=== PATIENT | female | born 1955 | race Caucasian/White ===

== ENCOUNTER → 2016-09-28 | Outpatient (CLI) | payer MEDICARE, OTHER ==
[~2016-09-28] MED LIST: ASPIR 8181 MG PO; ATIVAN 0.5MG0.5 MG PO; CELEXA20 MG PO; CERTAVITE-ANTI1 EACH PO; CYANOCOBAL1000 MCG/1 SUB-Q; DALIRESP500 MCG PO; DELTASONE20 MG PO; DEPAKOTE ER500 MG PO; FEOSOL325 MG PO; IPRAT-ALBUT 0.5-3 ML INH; LASIX20 M1 PO; LEVOTHROID (SY88 MCG PO; MELATONIN5 M2 PO; MULTI VITAMIN1 EACH PO; NICODERM/HABITR21 MG TOP; NITROSTAT0.4 MG SL; PRILOSEC20 M1 PO; SYMBICORT 16010.2 GM INH; TYLENOL325 MG PO; ZOCOR40 MG PO; ZYPREXA5 MG PO
== END | disposition disaster alternative care site (69) ==
LOC: GKIC 07:43
DX: R91.1 Solitary pulmonary nodule (principal); Z88.0 Allergy status to penicillin; Z88.1 Allergy status to other antibiotic agents; Z88.2 Allergy status to sulfonamides; Z88.5 Allergy status to narcotic agent; Z88.6 Allergy status to analgesic agent; Z88.8 Allergy status to other drugs, medicaments and biological substances
CPT/HCPCS: A9552